=== PATIENT | female | born 1970 | race Hispanic/Latino ===

== ENCOUNTER 2024-11-16 14:10 | Emergency (ER) | payer BC ==
[~2024-11-16] VITALS: Ht 172.7 cm; Wt 79.2 kg
[2024-11-16] MEDS: MECLIZINE HCL 12.5 MG TAB PO ONE (15:30)
[2024-11-16] MEDS: SODIUM CHLORIDE 0.9% 1000ML 1,000 ML IV STA (15:30)
[2024-11-16] MEDS ORDERED: MECLIZINE HCL25 MG PO (16:14)
[2024-11-16] MEDS ORDERED: ZEPBOUND10 MG/0.5 (16:24)
[2024-11-16] MEDS ORDERED: METHIMAZOLE5 MG (16:24)
[2024-11-16] MEDS ORDERED: IBUPROFEN600 MG PO (16:42)
[2024-11-16] MEDS ORDERED: TYLENOL325 MG PO (16:42)
[2024-11-16 17:01] VITALS: PULSE 75; RESP 16; TEMP 98.1; O2SAT 98
[2024-11-16] MEDS ORDERED: IBUPROFEN 600 MG TAB ONE (17:29)
[2024-11-16] MEDS ORDERED: ACETAMINOPHEN 325 MG TAB ONE (17:30)
[2024-11-16] MEDS: ACETAMINOPHEN 325 MG TAB PO ONE (17:38)
[2024-11-16] MEDS: IBUPROFEN 200 MG TAB PO ONE (17:39)
== END 2024-11-16 17:51 | disposition home or self-care (01) ==
LOC: FSED 14:17
DX: H81.10 Benign paroxysmal vertigo, unspecified ear (principal); S93.492A Sprain of other ligament of left ankle, initial encounter; S00.33XA Contusion of nose, initial encounter; M25.561 Pain in right knee; W01.0XXA Fall on same level from slipping, tripping and stumbling without subsequent striking against object, initial encounter; Y93.01 Activity, walking, marching and hiking; Y92.89 Other specified places as the place of occurrence of the external cause; R94.31 Abnormal electrocardiogram [ECG] [EKG]
CPT/HCPCS: 70450; 70486; 73562; 73610; 80053; 81003; 82553; 84484; 85025; 93005; 99284; J7030; J8597